=== PATIENT | male | born 1950 | race Caucasian/White ===

== ENCOUNTER 2017-02-19 08:00 | Outpatient (CLI) | payer OTHER | END 2017-02-19 23:59 | DX: E78.5 Hyperlipidemia, unspecified (principal); Z12.5 Encounter for screening for malignant neoplasm of prostate ==

== ENCOUNTER 2017-05-16 09:26 | Day surgery (SDC) | payer OTHER ==
[2017-05-16] MEDS ORDERED: LACTATED RINGERS 1,000 ML IV ONE (09:51)
[2017-05-16] MEDS ORDERED: fentaNYL 100 MCG/2 ML VIAL IVP ONE (11:14)
[2017-05-16] MEDS ORDERED: MIDAZOLAM 2 MG/2 ML VIAL IVP ONE (11:14)
[2017-05-16 12:34] VITALS: BP 124/79
--- NOTE | 2017-05-24 07:19 | PROCEDURE REPORT ---
DATE OF PROCEDURE: 05/16/2017 00:00:00 PROCEDURES 1. Esophagogastroduodenoscopy. 2. Colonoscopy. ENDOSCOPIST: Tamar Anderson MD PRIMARY CARE: Calr Dorsey MD INDICATIONS: Chest discomfort, possible GE reflux. Need for colorectal cancer screening. PREMEDICATIONS: Fentanyl 150 mcg, Versed 7 mg IV titration. Total sedation time was 28 minutes. TECHNIQUE: After informed consent was obtained, the patient was placed in the left lateral decubitus position. The video upper scope was placed into the oropharynx and with the patient's help swallowed into the esophagus. The esophagus, stomach and duodenum were carefully examined. On withdrawal, retro flex view of the GE junction was performed. The scope was removed. The patient tolerated the procedur e well. The patient was then turned and the colonoscope substituted. This easily passed to the cecum. On slow withdrawal, mucosa was carefully examined. The scope was removed. The patient tolerated the procedur e well. BLOOD LOSS: None. COMPLICATIONS: None. FINDINGS EGD: 1. 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 Biopsies taken to rule out any other lesions. 2. Mild distal gastritis with erythema. Biopsies taken to rule out Helicobacter. 3. Normal duodenum. COLONOSCOPY: 1. Negative colonoscopy to cecum. RECOMMENDATIONS: The patient will need followup colonoscopy in 10 years. Will call to discuss his bio psy results in 2 weeks. Otherwise, he will continue his current medications. JOB #: [id number] EXT JOB #:[id number]
== END 2017-05-16 09:27 | disposition home or self-care (01) ==
LOC: SDS 09:26
PROVIDERS: ATTEND Internal Medicine Gastroenterology
PROC: 0DJD8ZZ Inspection of Lower Intestinal Tract, Via Natural or Artificial Opening Endoscopic (ICD-10-PCS; 2017-05-16)
PROC: 0DB58ZX Excision of Esophagus, Via Natural or Artificial Opening Endoscopic, Diagnostic (ICD-10-PCS; principal; 2017-05-16 10:30)
PROC: 0DB68ZX Excision of Stomach, Via Natural or Artificial Opening Endoscopic, Diagnostic (ICD-10-PCS; 2017-05-16 10:30)
DX: Z12.11 Encounter for screening for malignant neoplasm of colon (principal); R07.9 Chest pain, unspecified; K29.70 Gastritis, unspecified, without bleeding; K21.9 Gastro-esophageal reflux disease without esophagitis
CPT/HCPCS: 43239; 45378; 88305; J7120

== ENCOUNTER 2017-05-27 11:17 | Emergency (ER) | payer OTHER ==
[2017-05-27] MEDS ORDERED: TETANUS/DIPHTHERIA/PERTUSSIS 0.5 ML SYRINGE IM ONE ×2 (11:30→11:58)
[2017-05-27] MEDS ORDERED: LIDOCAINE 1% 2 ML VIAL ONE (12:34)
--- NOTE | 2017-05-27 13:36 | ED Physician Documentation ---
PD HPI UPPER EXT INJURY - Stated complaint Stated Complaint: FINGER LAC - Chief complaint Chief Complaint: Ext Problem - History obtained from History obtained from: Patient, Family - History of Present Illness Location: Left, Finger (index) Type of injury: Laceration Where injury occurred: Home Timing - onset: Today Timing - duration: Hours Timing - details: Abrupt onset, Still present Improved by: Rest, Immobilization Worsened by: Moving, Palpating Associated symptoms: No: Weakness, Numbness, Tingling Contributing factors: No: Anticoagulated Similar symptoms before: Diagnosis (laceration) Recently seen: Not recently seen - Additonal information Additional information: 66-year-old previously well male was sawing some wood with his table saw when he nicked the tip of his left index finger. He is here now for suturing. Review of Systems Respiratory: denies: Cough GI: denies: Vomiting Skin: reports: Laceration (s) Musculoskeletal: reports: Extremity pain Neurologic: denies: Generalized weakness, Focal weakness, Numbness PD PAST MEDICAL HISTORY - Past Medical History Past Medical History: Yes Cardiovascular: None Respiratory: None Endocrine/Autoimmune: None GI: GERD : None HEENT: None Psych: None Musculoskeletal: None Derm: None - Past Surgical History Past Surgical History: Yes General: Colonoscopy - Present Medications Home Medications: Ambulatory Orders Medication Instructions Recorded Confirmed Aspirin 81 mg PO DAILY 05/15/17 05/27/17 Omeprazole 10 mg PO DAILY 05/15/17 05/27/17 - Allergies Allergies/Adverse Reactions: Allergies Allergy/AdvReac Type Severity Reaction Status Date / Time No Known Drug Allergies Allergy Verified 05/15/17 13:40 - Social History Does the pt smoke?: No Smoking Status: Never smoker Does the pt drink ETOH?: No Does the pt have substance abuse?: No - Immunizations Immunizations are current?: No Immunizations: TDAP >10years/unknown - POLST Patient has POLST: No PD ED PE NORMAL - Vitals Vital signs reviewed: (Normal) - General General: Alert and oriented X 3, No acute distress, Well developed/nourished - HEENT HEENT: Atraumatic, PERRL - Respiratory Respiratory: No respiratory distress - Derm Derm: Normal color, Warm and dry, No rash - Extremities Extremities: Other (There is a 2 cm laceration over the tip of the left index finger that is macerated does not involve deeper structures.) - Neuro Neuro: Alert and oriented X 3, No motor deficit, No sensory deficit, Normal speech - Psych Psych: Normal mood, Normal affect Results - Vitals Vitals: Vital Signs - 24 hr 05/27/17 11:25 Temperature 36.6 C Heart Rate 53 L Respiratory 16 Rate Blood Pressure 119/75 O2 Saturation 98 Oxygen O2 Source Room air Procedures - Laceration (location) Left index Length in cm: 2 Wound type: Linear, Irregular, Clean Neurovascular status: Sensory intact, Motor intact, Vascular intact Tendon involvement: Tendon intact Anesthesia: Lidocaine 1% Wound Preparation: Hibiclens, Irrigated copiously NS, Wound explored, To the base Skin layer closure: Nylon, Interrupted, Size #-0 - enter number ([phone]) Other: Patient tolerated well, No complications, Neurovascular intact, Dressing applied, Tetanus booster given Complexity: Simple PD MEDICAL DECISION MAKING - ED course Complexity details: considered differential, d/w patient, d/w family ED course: 66-year-old male with a distal finger laceration is sutured tolerated well. Departure - Departure Disposition: 01 Home, Self Care Clinical Impression: Laceration of left index finger Condition: Stable Instructions: ED Laceration Hand Follow-Up: Carl Dorsey MD [Primary Care Provider] - Comments: Sutures out in 7-10 days.
[2017-05-27 13:46] VITALS: BP 119/78
== END 2017-05-27 13:46 | disposition home or self-care (01) ==
LOC: ED 11:17
DX: S61.211A Laceration without foreign body of left index finger without damage to nail, initial encounter (principal); W31.2XXA Contact with powered woodworking and forming machines, initial encounter; Y92.018 Other place in single-family (private) house as the place of occurrence of the external cause; K21.9 Gastro-esophageal reflux disease without esophagitis; Z79.82 Long term (current) use of aspirin
CPT/HCPCS: 12001; 90471; 99283

== ENCOUNTER 2020-07-08 08:00 | Outpatient (CLI) | payer MEDICARE, BC ==
[2020-07-08 11:25] LABS: BASOPHILS # (AUTO) 0.1 10^3/uL (0.0-0.1); BASOPHILS % (AUTO) 2.1 %; EOSINOPHILS # (AUTO) 0.5 10^3/uL (0.0-0.7); EOSINOPHILS % (AUTO) 11.2 %; HGB - HEMOGLOBIN 13.4 g/dL (14.0-18.0); LYMPHOCYTES % (AUTO) 23.6 %; MEAN CORPUSCULAR HEMOGLOBIN 30.8 pg (27.0-31.0); MEAN CORPUSCULAR HGB CONC 31.8 g/dL (32.0-36.0); MEAN CORPUSCULAR VOLUME 96.8 fL (80.0-94.0); MONOCYTES # (AUTO) 0.3 10^3/uL (0.0-1.0); MONOCYTES % (AUTO) 7.8 %; NEUTROPHILS # (AUTO) 2.4 10^3/uL (1.5-6.6); NEUTROPHILS % (AUTO) 55.1 %; PLT - PLATELET COUNT 278 10^3/uL (130-450); RED BLOOD COUNT 4.35 10^6/uL (4.70-6.10); RED CELL DISTRIBUTION WIDTH 14.4 % (12.0-15.0); WHITE BLOOD COUNT 4.4 x10^3/uL (4.8-10.8)
[2020-07-08 11:57] LABS: ALBUMIN 4.1 g/dL (3.2-5.5); ALBUMIN/GLOBULIN RATIO 1.4 (1.0-2.2); ALKALINE PHOSPHATASE 45 IU/L (42-121); ALT ALANINE AMINOTRANSFERASE 22 IU/L (10-60); AST ASPARTATE AMINOTRANSFERASE 38 IU/L (10-42); BILIRUBIN,TOTAL 0.7 mg/dL (0.2-1.0); BUN - BLOOD UREA NITROGEN 21 mg/dL (6-20); CALCIUM 9.5 mg/dL (8.5-10.3); CARBON DIOXIDE - CO2 30 mmol/L (21-32); CHLORIDE 100 mmol/L (101-111); CHOL/HDL RATIO 3.1 (<5.0); CHOLESTEROL 200 mg/dL; CREATININE 1.1 mg/dL (0.6-1.2); GLUCOSE 76 mg/dL (70-100); HDL CHOLESTEROL 65 mg/dL; LDL CHOLESTEROL,CALCULATED 119 mg/dL; LDL/HDL RATIO 1.8 (<3.6); SODIUM 141 mmol/L (135-145); VLDL CHOLESTEROL 16 mg/dL
== END 2020-07-08 23:59 | disposition home or self-care (01) ==
LOC: LAB.WCP 08:00
PROVIDERS: ATTEND Family Medicine
DX: E78.5 Hyperlipidemia, unspecified (principal); Z12.5 Encounter for screening for malignant neoplasm of prostate
CPT/HCPCS: 36415; 80053; 80061; 84443; 85025; G0103; 83721; 84153